=== PATIENT | female | born 1990 | race Caucasian/White ===

== ENCOUNTER 2021-10-27 20:03 | Emergency (ER) | payer OTHER, SELFPAY ==
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
[2021-10-27 20:22] VITALS: BP 122/78; PULSE 74; O2SAT 98
[2021-10-27 20:32] VITALS: BP 137/67; PULSE 71; RESP 20; TEMP 36.9; O2SAT 100; BMI 34.0
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
[2021-10-27] MEDS: Ibuprofen 400 MG TABLET PO (22:44)
[2021-10-28 00:25] VITALS: RESP 16
--- NOTE | 2021-10-28 00:26 | PC.NURSE ---
pt a&o, no sob or chest pain. Reviewed discharge instructions. Pt verbalized understanding.
== END 2021-10-28 00:27 | disposition home or self-care (01) ==
PROVIDERS: Emergency Provider Emergency Medicine Emergency Medical Services
DX: S09.90XA Unspecified injury of head, initial encounter (principal); S53.402A Unspecified sprain of left elbow, initial encounter; V43.62XA Car passenger injured in collision with other type car in traffic accident, initial encounter; R07.89 Other chest pain; M79.632 Pain in left forearm; W22.12XA Striking against or struck by front passenger side automobile airbag, initial encounter; Y93.89 Activity, other specified; Y92.414 Local residential or business street as the place of occurrence of the external cause; Y99.9 Unspecified external cause status
CPT/HCPCS: 71046; 73070; 73090; 99283; 99284